=== PATIENT | male | born 1950 | race Caucasian/White ===

== ENCOUNTER → 2016-04-21 | Outpatient (CLI) | payer OTHER ==
[~2016-04-21] MED LIST: ASPI81TA21 PO; CLOP1TAB15 PO; LPR25 PO; LPT/40 PO; LVT/20 PO; TAMS0.4C59 PO; Vitamin B Complex PO
[2016-04-21 11:40] LABS: CHOLESTEROL/HDL RATIO 2.3
== END | disposition home or self-care (01) ==
LOC: C.LAB1850 09:32
PROVIDERS: ATTEND Internal Medicine Cardiovascular Disease
DX: E78.5 Hyperlipidemia, unspecified (principal)